=== PATIENT | male | born 1990 | race African-American/Black ===

== ENCOUNTER 2016-08-21 14:05 | Emergency (ER) | payer SELFPAY ==
[~2016-08-21] VITALS: Ht 175.3 cm; Wt 68.0 kg
[2016-08-21 14:45] VITALS: BP 130/70
[2016-08-21] MEDS ORDERED: Ketorolac 60mg Inj IM ONE (14:45)
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
[2016-08-21] MEDS ORDERED: IBUPROFEN600 MG ORAL (14:59)
[2016-08-21] MEDS ORDERED: CYCLOBENZAPRINE10 MG ORAL (14:59)
[2016-08-21 15:14] VITALS: BP 130/70
== END 2016-08-21 15:14 | disposition home or self-care (01) ==
LOC: EMR 14:30
DX: S16.1XXA Strain of muscle, fascia and tendon at neck level, initial encounter (principal); V43.52XA Car driver injured in collision with other type car in traffic accident, initial encounter; Y92.410 Unspecified street and highway as the place of occurrence of the external cause; M62.838 Other muscle spasm; M25.512 Pain in left shoulder; M25.511 Pain in right shoulder
CPT/HCPCS: 96372; 99284